=== PATIENT | female | born 1960 | race Caucasian/White ===

== ENCOUNTER 2016-09-09 16:10 | Emergency (ER) | payer MEDICARE ==
[2014-11-20 02:02] VITALS: BMI 41.3
[~2016-09-09 16:10] MED LIST: ACIDOPHILUS LAC1 CAP PO; AMITIZA24 MCG PO; ATIVAN2 MG/ML IV; CALCIUM 500 + D1 TAB PO; CATAPRES0.2 MG PO; CHILDREN'S ASPI81 MG PO; CIPRO500 MG PO; CITRIC ACID PO; ELIQUIS2.5 MG PO; FEOSOL LIQ300 MG/5 M PO; GLUCOPHAGE500 MG PO; GLUCOTROL 5 MG T5 MG PO; GUAIFENESI100 MG/5 M PO; HALDOL5 MG/ML IM; HUMULIN R100 U/ML SC; HYDRALAZINE20 MG/ML IV; HYDROCODONE-APA1 TAB PO; IMDUR30 MG PO; IPRAT-ALBUT 0.5-3 ML UPD; ISOSORBIDE MONO30 M1 PO; LANTUS SOL100 UNIT/1 SQ; LASIX40 MG PO; LEVAQUIN 5500 MG/100 IV; LEVOXYL50 MCG PO; LISINOPRIL-HCTZ1 T13 PO; LISINOPRIL10 MG PO; LOVENOX30 MG/0.3 SQ; MAG-OXIDE400 MG PO; MAGNESIUM S1 G/50 ML IV; METOPROLOL TART50 MG PO; MICRO-K10 MEQ PO; NEUTRA-PHOS PAC1 PK1 PO; NORVASC10 MG PO; NORVASC2.5 MG PO; NYSTATIN OINTME15 GM TP; ONDANSETRON4 MG/2 M3 IV; POTASSIUM20 MEQ/11 PO; PROCRIT/EP4000 UNITS; PROTONIX I40 MG/VIAL IV; REGLAN SOL10 MG/10 M PO; SODIUM CITRATE PO; SYNTHROID50 MCG PO; TYLENOL650 MG/20. PT; VITAMIN B-122500 MCG SL; XANAX0.5 MG PO; ZESTORETIC 20/21 TAB PO
[2016-09-09 18:46] LABS: BASOPHILS 0.2 % (0-2); EOSINOPHILS 3.8 % (0-7); HEMATOCRIT 31.7 % (36.0-48.0); HEMOGLOBIN 10.4 g/dL (12-16); IMMATURE GRANULOCYTES 0.4 % (0-5); LYMPHOCYTES 13.8 % (15-50); MCH 28.9 pg (26.0-34.0); MCHC 32.8 g/dL (31.0-37.0); MCV 88.1 fL (80.0-100.0); MEAN PLATELET VOLUME 9.7 fL (7.4-10.4); MONOCYTES 8.2 % (2-11); NEUTROPHILS 73.6 % (40-80); PLATELET COUNT 255 10x3/uL (130-400); RDW 13.4 % (11.5-14.5); WBC 8.9 10x3/uL (4.8-10.8)
[2016-09-09 18:55] LABS: INR 1.04 (0.85-1.17); PROTIME 13.4 SECONDS (11.6-15.0)
[2016-09-09 19:05] LABS: ALBUMIN 3.3 g/dL (3.4-5.0); ANION GAP 13.9 mmol/L (8-16); BILIRUBIN - TOTAL 0.27 mg/dL (0.2-1.3); CARBON DIOXIDE 24.9 mmol/L (21.0-32.0); CREATININE - SERUM 3.4 mg/dL (0.6-1.3); POTASSIUM - SERUM 3.8 mmol/L (3.5-5.1); PROTEIN - SERUM 8.7 g/dL (6.4-8.2)
== END 2016-09-09 20:32 | disposition home or self-care (01) ==
LOC: D.ER 16:10
PROVIDERS: Nurse Practitioner Family
DX: B02.30 Zoster ocular disease, unspecified (principal); N18.6 End stage renal disease; E11.9 Type 2 diabetes mellitus without complications

== ENCOUNTER → 2017-11-09 20:34 | Outpatient (CLI) | payer MEDICARE, MEDICAID ==
[~2017-11-09 20:34] MED LIST changes: +COMBIGAN OPHT DR5 ML LEFT EYE; +HYDRALAZINE HCL25 MG PO; +LEVOTHYROXINE50 MCG PO; +ROCALTROL0.25 MCG PO; +SODIUM BICARBO650 MG PO
== END | disposition home or self-care (01) ==
LOC: D.MAMMO 13:15
DX: Z12.31 Encounter for screening mammogram for malignant neoplasm of breast (principal)

== ENCOUNTER → 2017-12-30 18:37 | Outpatient (CLI) | payer MEDICARE, MEDICAID | END | disposition home or self-care (01) | LOC: D.MAMMO 12-02 14:00 | DX: R92.8 Other abnormal and inconclusive findings on diagnostic imaging of breast (principal) ==

== ENCOUNTER 2018-04-13 08:00 | Day surgery (SDC) | payer MEDICARE, MEDICAID ==
[~2018-04-13] VITALS: Ht 162.6 cm; Wt 114.8 kg
--- NOTE | ~2018-04-13 | OP ---
PATIENT NAME: VAZQUEZ MEHTA MEDICAL RECORD: [id number] :58 LOCATION:D.OPS ADMISSION DATE: SURGEON: KATIA BANGURA MD DATE OF OPERATION: 04/13/2018 PREOPERATIVE DIAGNOSIS: Steal syndrome, left upper extremity. POSTOPERATIVE DIAGNOSIS: Steal syndrome, left upper extremity. PROCEDURE: Banding of left brachiocephalic arteriovenous fistula with a PTFE band. SURGEON: Katia Bangura MD ACID PAINTER: None. BLOOD LOSS: Minimal. ANESTHESIA: General. COMPLICATIONS: None. The risks, possible complications and alternatives to the procedure were explained to the patient. She elects to proceed. The discussion specifically included, but was not limited to, bleeding requiring emergency reoperation, the fact that the banding might not work and the fact the patient may need a DRIL procedure in the future. The steal syndrome affects the third, fourth and fifth digits of the left hand, mainly she complains of a cold extremity. OPERATIVE COURSE: The patient was conveyed to the operating room electively on 04/13/2018. General anesthesia was induced by the anesthesia staff. The left upper extremity was abducted at 90 degrees to the patient's trunk. The incision was accomplished over the arteriovenous fistula at the site of the arterial anastomosis. I was able to dissect around the cephalic vein. I then checked for Doppler signal in the left wrist. There was monophasic signal that was weak in the radial artery as well as in the ulnar artery. I then placed a 4-mm PTFE band around the fistula. This was pleated and the pleats were held in place with a horizontal mattress of 3-0 Prolene. I then examined the wrist for Doppler signal. The Doppler signal was improved; however, I thought that we could do a little bit better. I then placed another horizontal mattress 3-0 Prolene, thus tightening the band further. Again, I examined the left wrist with the handheld Doppler and there was biphasic signal and it was stronger. I thought we could do even better and I placed one more 3-0 Prolene in a horizontal mattress fashion, even closer to the cephalic vein tightening the band further. At this point in time, there was Doppler signal in the radial and ulnar arteries at the wrist and this was biphasic signal. I felt this was probably the best I could do at this time. There was still a good amount of flow through the fistula with an excellent thrill. The subdermis was approximated with interrupted 3-0 Vicryls. The skin was approximated with a running intracuticular 4-0 Vicryl. A sterile dressing was applied. The patient was then extubated and conveyed to post-anesthesia care unit where she was in stable condition. She will be dismissed home with [facility] for pain. OPERATIVE REPORT [id number] VAZQUEZ MEHTA There is no reason for her to follow up with me in the office unless she develops a complication related to this operative procedure. In the recovery room, I placed a pulse oximeter on her index finger and then on her fifth finger and there was 99% sats with an excellent waveform on both digits. Additionally, the patient states that symptomatically her hand felt warmer, so I think that at least for now the banding procedure has been successful. TRANSINT:[id number] Voice Confirmation ID: [id number] DOCUMENT ID: [id number] KATIA BANGURA MD at 1055 CC: SASKIA BURNS MD and AURY SHAHID [id number] DICTATION DATE: 04/14/18 1302 MINE LABORER: 04/14/18 1633 [facility] 04/13/18 [facility] [address] [place] [address]
[2018-04-13 09:07] LABS: HEMATOCRIT 39.1 % (36.0-48.0); HEMOGLOBIN 12.2 g/dL (12-16); MCH 28.8 pg (26.0-34.0); MCHC 31.2 g/dL (31.0-37.0); MCV 92.2 fL (80.0-100.0); MEAN PLATELET VOLUME 9.7 fL (7.4-10.4); RBC 4.24 10x6/uL (4.00-5.40); RDW 15.6 % (11.5-14.5); WBC 12.8 10x3/uL (4.8-10.8)
[2018-04-13 09:18] VITALS: Ht 162.6 cm; Wt 114.8 kg
[2018-04-13 11:52] LABS: ANION GAP 19.1 mmol/L (8-16); CALCIUM 8.7 mg/dL (8.5-10.1); CARBON DIOXIDE 26.3 mmol/L (21.0-32.0); CREATININE - SERUM 6.1 mg/dL (0.6-1.3); POTASSIUM - SERUM 4.4 mmol/L (3.5-5.1)
== END 2018-04-13 16:45 | disposition home or self-care (01) ==
LOC: D.OPS 08:00
PROVIDERS: Anesthesiology
DX: T82.898A Other specified complication of vascular prosthetic devices, implants and grafts, initial encounter (principal); Z01.812 Encounter for preprocedural laboratory examination

== ENCOUNTER → 2018-07-29 12:42 | Outpatient (CLI) | payer MEDICARE, MEDICAID ==
[2018-04-13 09:18] VITALS: BMI 43.5
== END | disposition home or self-care (01) ==
LOC: D.HCCARDIO 12:42
PROVIDERS: ATTEND Internal Medicine Interventional Cardiology
DX: I10 Essential (primary) hypertension (principal)

== ENCOUNTER 2019-12-10 15:43 | Inpatient (IN) | payer MEDICARE, MEDICAID ==
[~2019-12-10] VITALS: Ht 162.6 cm; Wt 149.7 kg
[2019-12-10 16:18] LABS: BASOPHILS 0.1 % (0-2); EOSINOPHILS 2.6 % (0-7); HEMATOCRIT 29.8 % (36.0-48.0); HEMOGLOBIN 9.5 g/dL (12-16); IMMATURE GRANULOCYTES 0.5 % (0-5); LYMPHOCYTES 11.8 % (15-50); MCH 30.4 pg (26.0-34.0); MCHC 31.9 g/dL (31.0-37.0); MCV 95.2 fL (80.0-100.0); MEAN PLATELET VOLUME 9.3 fL (7.4-10.4); MONOCYTES 5.9 % (2-11); NEUTROPHILS 79.1 % (40-80); RBC 3.13 10x6/uL (4.00-5.40); RDW 13.8 % (11.5-14.5); WBC 8.8 10x3/uL (4.8-10.8)
[2019-12-10 16:19] LABS: PLATELET COUNT 245 10x3/uL (130-400)
[2019-12-10 16:24] VITALS: BP 166/73
[2019-12-10 16:26] LABS: APTT 31.7 SECONDS (22.8-39.4); INR 1.21 (0.85-1.17); PROTIME 15.2 SECONDS (11.6-15.0)
[2019-12-10 16:48] LABS: ALKALINE PHOSPHATASE 60 U/L (30-120); ALT (SGPT) 19 U/L (10-68); BILIRUBIN - TOTAL 0.32 mg/dL (0.2-1.3); CALC OSMOLALITY 339 mosm/kg (275-300); CARBON DIOXIDE 11.2 mmol/L (21.0-32.0); CHLORIDE - SERUM 106 mmol/L (98-107); CKMB 2.1 U/L (0.0-3.6); CREATINE KINASE 97 UL (21-215); CREATININE - SERUM 14.2 mg/dL (0.6-1.3); GLUCOSE 126 mg/dL (74-106); MAGNESIUM - SERUM 2.2 mg/dL (1.8-2.4); POTASSIUM - SERUM 5.6 mmol/L (3.5-5.1); PROTEIN - SERUM 7.5 g/dL (6.4-8.2); SODIUM 143 mmol/L (136-145); TROPONIN-I < 0.017 ng/mL (0.000-0.060); eGFR NON AFRICAN AMERICAN 3 mL/min (90-120)
[2019-12-10 16:49] LABS: UREA NITROGEN 162 mg/dL (7-18)
[2019-12-10 16:50] LABS: CALCIUM 6.2 mg/dL (8.5-10.1)
--- NOTE | 2019-12-10 16:52 | NUR ---
IN AND OUT CATH DONE TO GET URINE PT HAS RED EXCORIATION UNDER SKIN FOLDS ALONG WITH VERY DRY AREAS TO LOWER EXT. PT STATES SHE HAS BEEN UNABLE TO CLEAN OR CARE FOR HERSELF DRIED BM ON LEGS .
--- NOTE | 2019-12-10 18:35 | NUR ---
CALCIUM GLUCONATE INFUSING ON ADMISSION TO HOSPITAL.
--- NOTE | 2019-12-10 19:15 | NUR ---
PT ADMITTED FROM ER AT THIS TIME PT ORDERS WERE NOTED BY PREVIOUS SHIFT CHART HAS BEEN DONE IO BAKARI GUSMAN ORDERS AND CHART CHECK PT IS AMBLITORY AND IS PREFERING TO SIT IN CHAIR PT GIVEN CALL LIGHT AND MAKES NO NEEDS KNOWN AT THIS TIME
[2019-12-10 20:45] VITALS: BP 94/40
[2019-12-11 01:40] VITALS: BP 179/63
--- NOTE | 2019-12-11 04:40 | NUR ---
PT CO SOB SPO2 99% NO CHANGE IN LUNG SPENCE
[2019-12-11 05:44] LABS: BASOPHILS 0.1 % (0-2); EOSINOPHILS 2.2 % (0-7); HEMATOCRIT 29.5 % (36.0-48.0); HEMOGLOBIN 9.3 g/dL (12-16); IMMATURE GRANULOCYTES 0.8 % (0-5); LYMPHOCYTES 13.3 % (15-50); MCHC 31.5 g/dL (31.0-37.0); MCV 95.2 fL (80.0-100.0); MEAN PLATELET VOLUME 9.4 fL (7.4-10.4); MONOCYTES 6.9 % (2-11); NEUTROPHILS 76.7 % (40-80); PLATELET COUNT 252 10x3/uL (130-400); RDW 13.9 % (11.5-14.5); WBC 8.7 10x3/uL (4.8-10.8)
--- NOTE | 2019-12-11 05:57 | NUR ---
I have reviewed this patient and I concur with the Shift Assessment completed by the Licensed Practical Nurse today this shift.
--- NOTE | 2019-12-11 05:58 | NUR ---
I have reviewed this patient and I concur with the Shift Assessment completed by the Licensed Practical Nurse today this shift.
[2019-12-11 06:15] LABS: ALBUMIN 2.7 g/dL (3.4-5.0); ANION GAP 26.1 mmol/L (8-16); BILIRUBIN - TOTAL 0.29 mg/dL (0.2-1.3); CARBON DIOXIDE 12.2 mmol/L (21.0-32.0); CREATININE - SERUM 14.1 mg/dL (0.6-1.3); POTASSIUM - SERUM 5.3 mmol/L (3.5-5.1); PROTEIN - SERUM 7.3 g/dL (6.4-8.2)
[2019-12-11 06:29] LABS: CALCIUM 6.5 mg/dL (8.5-10.1)
[2019-12-11 06:42] VITALS: BP 179/63; BMI 56.8
[2019-12-11 07:06] VITALS: BP 161/44
--- NOTE | 2019-12-11 07:46 | NUR ---
PT RESTING COMFORTABLY, LYING IN BED. EYES CLOSED, BREATHS EVEN, REGULAR AND UNLABORED. NO SIGNS OR SYMPTOMS OF ACUTE DISTRESS NOTED AT HIS TIME. CL IN REACH, SRX2.
[2019-12-11 08:00] VITALS: BP 175/65
[2019-12-11 12:59] VITALS: Ht 162.6 cm; Wt 149.7 kg
--- NOTE | 2019-12-11 19:00 | NUR ---
ALERT AND OX4 PT DENIES NEEDS CALL LIGHT PUT BACK IN REACH BED LOW AND LOCKED
[2019-12-11 20:00] VITALS: BP 187/74
[2019-12-12 04:00] VITALS: BP 153/63
--- NOTE | 2019-12-12 07:33 | NUR ---
REPORT RECIEVED. PT SITTING IN BED SIDE CHAIR. RR EVEN AND UNLABORED ON RA. PT HAS A R HAND PIV THAT IS SL. SHE IS A RESERVE L ARM FOR AN AVF. BED LOCKED AND IN LOWEST POSITION, CALL LIGHT WITHIN REACH. WILL CTM
[2019-12-12 08:00] VITALS: BP 152/69
[2019-12-12 15:00] VITALS: BP 141/81
--- NOTE | 2019-12-12 15:08 | NUR ---
I have reviewed this patient and I concur with the Shift Assessment completed by the Licensed Practical Nurse today this shift.
--- NOTE | 2019-12-12 20:08 | NUR ---
resting thus far in chair this shift resp even and unlabored
[2019-12-12 22:30] VITALS: BP 162/70
[2019-12-13 04:30] VITALS: BP 139/50
[2019-12-13 08:46] VITALS: BP 162/71
[2019-12-13 11:40] LABS: ANION GAP 15.4 mmol/L (8-16); CARBON DIOXIDE 24.1 mmol/L (21.0-32.0); CREATININE - SERUM 7.3 mg/dL (0.6-1.3); PHOSPHOROUS 5.7 mg/dL (2.5-4.9); POTASSIUM - SERUM 3.5 mmol/L (3.5-5.1)
[2019-12-13 11:52] LABS: CALCIUM 6.3 mg/dL (8.5-10.1)
--- NOTE | 2019-12-13 13:15 | NUR ---
Nutrition Follow-up: Pt reports improvement in appetite; ate 100% of breakfast this AM. C/o mild nausea without vomiting. HD yesterday with plans for HD again today. Diet: Renal ADA Wt: 330# (12/10) Last BM: 12/12 Labs noted: K+ 3.5, Glu 183, Ca 6.3, PO4 5.7 Meds noted: Lasix, Humulin -MD may consider PO4 binder 2/2 hyperphosphatemia. -Monitor wt. -RD following.
--- NOTE | 2019-12-13 15:29 | NUR ---
SL LEFT ARM INTACT. CALL LIGHT IN REACH. SARA NEEDS AT THIS TIME. WILL MONITOR.
[2019-12-13 17:08] VITALS: BP 145/53
--- NOTE | 2019-12-13 19:30 | NUR ---
PT IN CHAIR, PT AAO X 3, RESP EVEN AND UNLABORED. NO DISTRESS NOTED, NO C/O PAIN OR DISCOMFORT NOTED AT THIS TIME, CL IN REACH.
[2019-12-13 20:30] VITALS: BP 139/70
[2019-12-14 00:30] VITALS: BP 137/59
[2019-12-14 04:30] VITALS: BP 136/58
[2019-12-14 08:24] VITALS: BP 139/70
--- NOTE | 2019-12-14 14:40 | NUR ---
TELEMETRY SR, HR 70. RESTS IN BED WITH CALL LIGHT IN REACH.
[2019-12-14 18:07] LABS: BASOPHILS 0.3 % (0-2); EOSINOPHILS 3.4 % (0-7); HEMATOCRIT 25.9 % (36.0-48.0); HEMOGLOBIN 8.2 g/dL (12-16); IMMATURE GRANULOCYTES 0.9 % (0-5); LYMPHOCYTES 13.7 % (15-50); MCH 29.6 pg (26.0-34.0); MCHC 31.7 g/dL (31.0-37.0); MCV 93.5 fL (80.0-100.0); MEAN PLATELET VOLUME 9.3 fL (7.4-10.4); MONOCYTES 12.3 % (2-11); NEUTROPHILS 69.4 % (40-80); RBC 2.77 10x6/uL (4.00-5.40); RDW 13.1 % (11.5-14.5)
[2019-12-14 18:09] LABS: PLATELET COUNT 184 10x3/uL (130-400)
[2019-12-14 18:16] LABS: ANION GAP 12.1 mmol/L (8-16); CARBON DIOXIDE 28.6 mmol/L (21.0-32.0); CREATININE - SERUM 5.6 mg/dL (0.6-1.3); POTASSIUM - SERUM 3.7 mmol/L (3.5-5.1)
[2019-12-14 18:29] LABS: CALCIUM 6.9 mg/dL (8.5-10.1)
--- NOTE | 2019-12-14 19:30 | NUR ---
PT UP IN CHAIR, AAO X 3, RESP EVEN AND UNLABORED. NO DISTRESS NOTED, CL IN REACH. NO C/O PAIN OR DISCOMFORT NOTED.
[2019-12-14 20:00] VITALS: BP 166/75
[2019-12-15] VITALS: BP 149/60
[2019-12-15 04:00] VITALS: BP 138/59
[2019-12-15 06:12] LABS: ALBUMIN 2.6 g/dL (3.4-5.0); ANION GAP 13.3 mmol/L (8-16); BILIRUBIN - TOTAL 0.17 mg/dL (0.2-1.3); CARBON DIOXIDE 26.2 mmol/L (21.0-32.0); CREATININE - SERUM 6.8 mg/dL (0.6-1.3); MAGNESIUM - SERUM 1.7 mg/dL (1.8-2.4); PHOSPHOROUS 5.2 mg/dL (2.5-4.9); POTASSIUM - SERUM 3.5 mmol/L (3.5-5.1); PROTEIN - SERUM 6.7 g/dL (6.4-8.2)
[2019-12-15 06:31] LABS: CALCIUM 6.6 mg/dL (8.5-10.1)
[2019-12-15 08:00] VITALS: BP 162/66
--- NOTE | 2019-12-15 09:02 | NUR ---
SHE IS SETTING UP IN THE CHAIR. SHE CAN NOT GET COMFORTABLE IN THE BED. BIALTERAL LOWER LEG EDEMA AND DRY SKIN. SHE DENIES ANY PAIN. THE CALL LIGHT IS WITHIN REACH.
[2019-12-15 11:00] VITALS: BP 169/66
[2019-12-15 12:55] LABS: TOTAL IRON BIND CAPACITY 121 ug/dl (260-445)
[2019-12-15 13:07] LABS: % SATURATION 39 % (15-55); IRON 48 ug/dl (35-150); UNSAT IRON BIND CAPACITY 73 ug/dl (150-375)
--- NOTE | 2019-12-15 16:33 | MORECARE ---
CASE MANAGEMENT DISCHARGE SUMMARY PATIENT: VAZQUEZ MELLO PHAM UNIT: [id number] ADM DATE: 12/10/19 AGE: 59 : 58 SEX: F ROOM/BED: D.7625 AUTHOR: PEEWEE SEAY PHYSICIAN: REFERRING PHYSICIAN: AURY SHAHID MD DATE OF SERVICE: 12/15/19 Discharge Plan Patient Name: VAZQUEZ MELLO Facility: [facility]:[place] : 1960 Planned Disposition: Home Anticipated Discharge Date: 12/15/19 Discharge Date: Expected LOS: 5 Initial Reviewer: [email or web address] Initial Review Date: 12/10/2019 Generated: 12/15/19 5:33 pm Comments DCP- Discharge Planning Updated by [email or web address]: Vandana Redd on 12/15/19 3:[address] 1545: CM Met with patient for DC planning: Patient lives independently, alone in her apartment. Patient lives separately from her , Misael. PCP: Dr. Bentley. Pharmacy: [facility]. DME: RW, does not use it. Encouraged patient to use her walker, for safety purposes. Emergency contact: Misael Mello, SR #[phone], (son) Misael Mello, #[phone]. CM contacted [facility] with admissions to correct Misael SHELTON's phone number. patient denies the need for HHS, SNF, Rehab. Encouraged patient to obtain a medication box, fill it weekly and take it to HD, along with her medication list. Patient verbalized HD days/time, [facility] time for pick-up. 1445: CM contacted by Gladis Claros, with days/time HD resumption. Accepted back to [facility], /, patient to be there @1130 for a 1200 chair. Per [place], the patient had previously signed off HD and was accepted to Hospice. Per [place], the patient will need to stay for HD tomorrow.? CM contacted [facility] with arranged transportation: [facility] arranged for dc today @1600, to her home today, @[address], [address], confirmation #[id number]. Also, arranged transportation T//Wed @1130, for a chair time of 1200. Confirmation #[id number]. Hepatitis panels have been ordered. CM notified Gladis Claros of the need for a HD unit and days. Coverage Notice Reviewer: [email or web address] Arsalan Redd Notice Issued Date-Time: 12/15/2019 16:22 Notice Type: IM Discharge Notice Notice Delivered To: Patient Relationship to Patient: Self Attendance Secretary Name: Vazquez Mello Delivery Method: HAND - Hand Delivered [place] Days: Prior Verbal Notification: Recipient Understood Notice: Yes Recipient Signature: Yes Med Rec Note Co-signed by Attending: Coverage Notice Comment: DC IMM signed/delivered to patient. Original to chart. Patient Name: VAZQUEZ MELLO Page [id number] at 1633 All edits/amendments must be made on the electronic document DICTATION DATE: 12/15/19 1633 [employer] VIEWER: ALFONZO 12/15/19 1633 RPT#: [id number] DC DATE: STATUS: ADM IN [facility] [address] [place] [address] END OF REPORT
--- NOTE | 2019-12-15 17:30 | NUR ---
PAPERWORK GONE OVER WITH AND QUESTIONS ANSWERED. IV REMOVED, TELE REMOVED AND RETURNED. TAKEN TO THE FRONT DOOR VIA WHEELCHAIR.
[2019-12-16 07:15] LABS: HEPATITIS C ANTIBODY <0.1 S/CO RAT (0.0-0.9)
== END 2019-12-15 17:31 | disposition home or self-care (01) | DRG 640 ==
LOC: D.ER 15:43 → D.M2 18:06
PROVIDERS: Family Medicine; Internal Medicine; ADMIT Internal Medicine Nephrology; ATTEND Internal Medicine Nephrology
PROC: 5A1D70Z Performance of Urinary Filtration, Intermittent, Less than 6 Hours Per Day (ICD-10-PCS; principal; 2019-12-11)
DX: E87.5 Hyperkalemia (principal); N18.6 End stage renal disease; I13.2 Hypertensive heart and chronic kidney disease with heart failure and with stage 5 chronic kidney disease, or end stage renal disease; I50.22 Chronic systolic (congestive) heart failure; E11.22 Type 2 diabetes mellitus with diabetic chronic kidney disease; Z99.2 Dependence on renal dialysis; Z91.15 Patient's noncompliance with renal dialysis; D63.1 Anemia in chronic kidney disease

== ENCOUNTER 2020-09-25 09:45 | Outpatient (CLI) | payer MEDICARE, MEDICAID ==
[2019-12-11 12:59] VITALS: BMI 56.6
== END 2020-09-25 10:15 | disposition home or self-care (01) ==
LOC: D.MAMMO 09:45
PROVIDERS: ATTEND Family Medicine
DX: Z12.31 Encounter for screening mammogram for malignant neoplasm of breast (principal)